=== PATIENT | female | born 1985 | race African-American/Black ===

== ENCOUNTER 2017-01-04 16:51 | Emergency (ER) | payer MEDICAID ==
[~2017-01-04] VITALS: Ht 162.6 cm; Wt 57.0 kg
[~2017-01-04 16:51] MED LIST: HYDR-3927
[2017-01-04] MEDS ORDERED: IBUPROFEN 600MG TABLET PO ONE (21:45)
[2017-01-04] MEDS ORDERED: IPRATROPIUM/ALBUTEROL 0.5-3(2.5)MG/3ML NEB HHN ONE (21:45)
[2017-01-05 00:15] VITALS: BP 103/72
== END 2017-01-05 00:25 | disposition home or self-care (01) ==
LOC: ER 20:02
DX: J45.909 Unspecified asthma, uncomplicated (principal); F17.200 Nicotine dependence, unspecified, uncomplicated
CPT/HCPCS: 94640; 99283; Z7610; J7620

== ENCOUNTER 2022-05-14 10:54 | Emergency (ER) | payer MEDICARE, MEDICAID ==
[~2022-05-14] VITALS: Ht 162.6 cm; Wt 76.0 kg
[~2022-05-14 10:54] MED LIST changes: +POTA-204 MT
[2022-05-14 11:13] VITALS: BP 129/86
== END 2022-05-14 13:53 | disposition left against medical advice (07) ==
LOC: ER 10:54
DX: Z53.21 Procedure and treatment not carried out due to patient leaving prior to being seen by health care provider (principal)

== ENCOUNTER 2022-05-18 21:16 | Emergency (ER) | payer MEDICARE, MEDICAID | END 2022-05-18 23:34 | disposition left against medical advice (07) | LOC: ER 21:16 | DX: Z53.21 Procedure and treatment not carried out due to patient leaving prior to being seen by health care provider (principal) ==